=== PATIENT | male | born 1970 | race Caucasian/White ===

== ENCOUNTER 2023-07-13 06:57 | Day surgery (SDC) | payer OTHER, SELFPAY ==
[2023-07-13 07:05] VITALS: BP 132/81; PULSE 61; RESP 16; TEMP 36.2; O2SAT 98
--- NOTE | 2023-07-13 07:06 | W.ANESPRE ---
General Info Date of Service Date Performed: 07/13/23 Height: 6 ft 1 in Weight: 116.573 kg Body Mass Index (BMI): 33.9 Surgical Procedure: Operation Date: 07/13/23 08:20 Proposed Procedure Side Surgeon p Ab Jaramillo MD Meds Allergies and Home Medications Allergies Allergy/AdvReac Type Severity Reaction Status Date / Time Penicillins Allergy Severe rash Verified 07/13/23 07:14 Home Medication Medication Instructions Recorded bisacodyl 5 mg tablet,delayed 5 mg PO ONCE #4 tabs 06/23/23 release (Dulcolax (bisacodyl)) polyethylene glycol 3350 17 17 g PO ONCE #238 grams 06/23/23 gram/dose oral powder methylphenidate HCl 10 mg tablet 10 mg PO DAILY PRN 07/12/23 Current Visit Medications: Current Medications Generic Name Dose Route Start Last Admin Trade Name Freq PRN Reason Stop Dose Admin Ringer's Solution 1,000 mls @ 80 mls/hr 07/13/23 06:00 IV 07/13/23 23:59 INFUSION MILKA IV Miscellaneous Supplies 1 each 07/13/23 06:00 Iv Access IV 07/13/23 23:59 DIRECTED MILKA Sodium Chloride 0 ml 07/13/23 06:00 Normal Saline Flush 10 Ml Syr IV 07/13/23 23:59 PRN PRN Sodium Chloride 0 ml 07/13/23 06:00 Normal Saline 10 Ml Vial IJ 07/13/23 23:59 DIRECTED PRN Sterile Water 0 ml 07/13/23 06:00 Water,Injection,Sterile 10 Ml Vial IJ 07/13/23 23:59 DIRECTED PRN PFSH Active Problems Active Problems: Problem Status Onset Code Encounter for screening colonoscopy Z12.11 HTN, goal to be determined I10 Surgical History Surgical History History of shoulder surgery (~1994) History of back surgery (~2009) Pt unsure of the name of surgery-herniated disc Tobacco Smoking/Tobacco Use Status: Never Smokeless tobacco user: snuff Alcohol Alcohol Intake: current Alcohol intake frequency: a few times a week Alcohol type: wine Substance Use Substance use: Never Substance use type: does not use Vital Signs and Lab Results Lab Results Blood Type / Crossmatch: No Data to Display Complete Blood Count: No Data to Display Complete Metabolic Panel: No Data to Display Liver Function Panel: No Data to Display Coagulation Panel: No Data to Display Cardiac Panel: No Data to Display Arterial Blood Gas: No Data to Display Venous Blood Gas: No Data to Display Pancreas Panel: No Data to Display Thyroid Panel: No Data to Display Infectious Disease: No Data to Display Blood Cultures: No Data to Display Toxicology Panel: No Data to Display Anesthesia Assessment and Plan Anesthesia History Personal History: No History of Anesthesia Complications Family History: No Family History of Anesthesia Complications Exercise Tolerance Exercise Tolerance: Metabolic Equivalents>4 Pertinent Negatives Pertinent Negatives: No Symptoms of GERD, No Major Cardiovascular Symptoms or Complaints, No Major Pulmonary Symptoms or Complaints and No History of CVA/TIA Cardiac & Pulmonary Exam Cardiac Exam: Normal S1/S2 Heart Sounds Pulmonary Exam: Clear Bilateral Breath Sounds Implantable Cardiac Device Does patient have a Pacemaker or an ICD?: No Airway Exam Known Difficult Airway: No Mallampati Class: 1 Mouth Opening: Normal (> 3cm) Thyromental Distance: Greater than 3 cm Neck Range of Motion: Full ROM Neck Circumference: Normal Teeth Condition: Normal Dentition ASA Classification ASA Score: ASA 2 Emergency Case?: No NPO Status NPO Status: NPO Clears >2 hours, Solids >8 hours Anesthesia Plan Resuscitation Status: Full Code Anesthesia Technique: General Anesthesia Airway Planned: Natural Airway Monitors Used: Standard Monitors
[2023-07-13] MEDS: Lactated Ringers 1,000 ML 80 ML IV (07:20)
[2023-07-13 07:54] VITALS: BMI 33.9
--- NOTE | 2023-07-13 08:07 | W.COLOREPORT ---
Date of service: 07/13/23 Time of Service: 08:07 Colonoscopy Report Procedure Description: PROCEDURES PERFORMED: 1. Colonoscopy PREOPERATIVE DIAGNOSIS: Screening colonoscopy POSTOPERATIVE DIAGNOSIS: Mild sigmoid diverticulosis, mild grade 1 internal hemorrhoids SURGEON: Toby Jaramillo MD INDICATION FOR PROCEDURE: the patient is a 53-year-old man with no family history of colon cancer, no symptoms and due for his first screening colonoscopy. FINDINGS: Normal terminal ileum. No polyps. Minimal/mild, scattered diverticular changes in the sigmoid colon only. Grade 1 internal hemorrhoids. SURVEILLANCE interval/FOLLOW-UP: 10 years SPECIMENS: None EBL: Minimal COMPLICATIONS: None QUALITY of prep: Excellent Procedure in detail: The patient gave written consent and was in agreement with the indications, the potential risks as well as the benefits of the procedure. They were taken to the endoscopy suite and laid in the left lateral decubitus position. A timeout was performed and anesthesia was administered which was tolerated well. I started the procedure. Digital rectal and visual examination was performed and grossly within normal limits. A well-lubricated flexible colonoscope was then introduced and passed without any notable difficulty all the way to the cecum identified by the ileocecal valve and the appendiceal orifice. The terminal ileum was briefly intubated and appeared normal. The scope was then slowly withdrawn with the above-noted findings. The patient tolerated the procedure well and was taken to the PACU in hemodynamically stable condition.
--- NOTE | 2023-07-13 08:07 | W.PM.DSUDISC ---
Date of service: 07/13/23 Time of Service: 08:08 Discharge Plan Disposition Patient Disposition: Home Condition: Good Discharge Details Attending Provider: Vignesh Jaramillo Primary Care Provider: Michael Romero Home Meds and New Rx's Prescriptions: No Action bisacodyl [Dulcolax (bisacodyl)] 5 mg tablet,delayed release (DR/EC) 5 mg PO ONCE Qty: 4 0RF Rx Instructions: Take per colonoscopy instructions provided by ordering providers office polyethylene glycol 3350 17 gram/dose powder 17 g PO ONCE Qty: 238 0RF Rx Instructions: Take per colonoscopy instructions provided by ordering providers office methylphenidate HCl 10 mg tablet 10 mg PO DAILY PRN Patient Comments: TAKE ONE TABLET BY MOUTH EVERY DAY IN THE MORNING AND AT NOON Discharge Instructions Additional Instructions: FINDINGS: No polyps or cancerous findings were encountered. You have mild diverticular changes in your colon which is extremely common, benign and nothing needs to be done about it. You should repeat a colonoscopy in 10 years. Stand Alone Forms: Anesthesia Discharge Bibiana Vargas (DSU) Activity:: Activity as Tolerated Diet:: As Tolerated
[2023-07-13 08:37] VITALS: BP 121/98; PULSE 66; RESP 16; TEMP 36; O2SAT 97
--- NOTE | 2023-07-13 09:01 | W.ANESPOSTOP ---
Postoperative Evaluation Date, Time and Location Date Performed: 07/13/23 Time Performed: 09:01 Patient Location: Day Surgery Unit Vital Signs Most Recent Imported Vital Signs: Most Recent Vital Signs Temp Pulse Resp BP Pulse Ox 36 C L 66 16 121/98 H 97 07/13/23 08:37 07/13/23 08:37 07/13/23 08:37 07/13/23 08:37 07/13/23 08:37 Pain Score Most Recent Pain Score: Most Recent Pain Score Pain Level 0 07/13/23 08:37 Assessment Mental Status: Awake (Alert & Oriented to Patient Baseline) Airway and Respiratory Function: Patent airway with normal (patient baseline) respiratory exam Cardiovascular Function: Hemodynamically Stable Hydration Status: Adequately Hydrated Nausea & Vomiting: No Nausea or Vomiting Pain: Pt. Denies Any Pain Peripheral Nerve Block: Patient did not receive a nerve block
[2023-07-13 09:03] VITALS: BP 122/79; PULSE 53; RESP 16; TEMP 36.2; O2SAT 99
== END 2023-07-13 09:25 | disposition home or self-care (01) ==
LOC: SUR 06:58
PROVIDERS: PCP Family Medicine; Visit Provider Student in an Organized Health Care Education/Training Program
PROC: 0DJD8ZZ Inspection of Lower Intestinal Tract, Via Natural or Artificial Opening Endoscopic (ICD-10-PCS; CPT 45378; principal; 2023-07-13 08:15)
DX: Z12.11 Encounter for screening for malignant neoplasm of colon (principal); I10 Essential (primary) hypertension; K57.30 Diverticulosis of large intestine without perforation or abscess without bleeding; K64.0 First degree hemorrhoids
CPT/HCPCS: 45378; 00123; J2704